=== PATIENT | female | born 1995 | race Caucasian/White ===

== ENCOUNTER 2018-09-14 12:11 | Inpatient (IN) | payer MEDICAID ==
[~2018-09-14] VITALS: Ht 165.1 cm; Wt 122.5 kg
[2018-09-14 12:43] VITALS: Ht 165.1 cm; Wt 122.5 kg
[2018-09-14 12:44] VITALS: BP 124/62; PULSE 85; RESP 18
[2018-09-14] MEDS ORDERED: LACTATED RINGER'S 1,000 ML IV SCH ×2 (16:42→23:01)
[2018-09-14] MEDS ORDERED: OXYTOCIN 30 UNITS/LR 500 ML IV SCH ×5 (17:00→23:01)
[2018-09-14] MEDS ORDERED: LIDOCAINE 1% (MPF) 30 ML INJ INJ PRN (17:00)
[2018-09-14] MEDS ORDERED: METHYLERGONOVINE 0.2 MG INJ IM PRN ×3 (17:00→23:30)
[2018-09-14] MEDS ORDERED: MISOPROSTOL 200 MCG TAB PR PRN ×3 (17:00→23:30)
[2018-09-14] MEDS ORDERED: CARBOPROST 250 MCG INJ IM PRN ×3 (17:00→23:30)
[2018-09-14] MEDS ORDERED: OXYTOCIN 30 UNITS/LR 500 ML IV PRN ×3 (17:00→23:30)
[2018-09-14] MEDS ORDERED: BUTORPHANOL 2 MG INJ IV PRN ×2 (17:00)
[2018-09-14] MEDS ORDERED: AMPICILLIN 2 GM/NS (PMX) 100 ML IV ONE (17:00)
[2018-09-14] MEDS ORDERED: CEFAZOLIN 2 GM/50 ML (PMX) 0 ML IVPB ONE (20:03)
[2018-09-14] MEDS: LACTATED RINGER'S 1,000 ML IV SCH (20:04)
[2018-09-14] MEDS ORDERED: ONDANSETRON 4 MG INJ IV STA (20:09)
[2018-09-14] MEDS ORDERED: CITRIC ACID/NA CITRATE 30 ML CUP ONE (20:12)
[2018-09-14] MEDS ORDERED: ONDANSETRON 4 MG INJ ONE ×2 (20:13→21:08)
--- NOTE | 2018-09-14 20:17 | PREAC ---
Date/Time of Note Date/Time of Note DATE: 09/14/18 TIME: 20:16 Anesthesia Eval and Record Evaluation Time Pre-Procedure Interview DATE: 09/14/18 TIME: 20:16 Age 23 Sex female NPO: 8 hrs Preoperative diagnosis Macrosomia Planned procedure Primary Past Medical History Past Medical History: Includes GI: Obesity Heme: Anemia : : (1), Para: (0), Gestational age: (37) Surgery & Anesthesia Issues No known issue Meds Anticoagulation: No Beta Farrah within 24 hr: No Reason Beta Farrah not given: Pt. not on B-Farrah Current Medications Lactated Ringer's 1,000 ml @ 125 mls/hr Q8H IV Last administered on 09/14/18at 19:36; Admin Dose 125 MLS/HR; Start 09/14/18 at 16:42 Ampicillin 50 ml @ 100 mls/hr Q4H IV ; Start 09/14/18 at 21:00 Butorphanol Tartrate (Stadol) 1 mg Q2H PRN IV .PAIN SCALE 1-5; Start 09/14/18 at 17:00 Butorphanol Tartrate (Stadol) 2 mg Q2H PRN IV .PAIN SCALE 6-10; Start 09/14/18 at 17:00 Lidocaine (Xylocaine 1% (Mpf)) 30 ml ONCE PRN INJ .EPISIOTOMY; Start 09/14/18 at 17:00 Oxytocin/Lactated Ringer's 500 ml @ 500 mls/hr ONCE POST IV ; Start 09/14/18 at 17:00 Oxytocin/Lactated Ringer's 500 ml @ 125 mls/hr POST IV ; Start 09/14/18 at 17:00 Oxytocin/Lactated Ringer's 500 ml @ 0 mls/hr ONCE PRN IV .VAGINAL BLEEDING; Sta rt 09/14/18 at 17:00 Methylergonovine Maleate (Methergine) 0.2 mg ONCE PRN IM .VAGINAL BLEEDING; Sta rt 09/14/18 at 17:00 Carboprost Tromethamine (Hemabate) 250 mcg ONCE PRN IM .VAGINAL BLEEDING; Start 09/14/18 at 17:00 Misoprostol (Cytotec) 1,000 mcg ONCE PRN MA .VAGINAL BLEEDING; Start 09/14/18 at 17:00 Oxytocin/Lactated Ringer's 500 ml @ 0 mls/hr FOR INDUCTION IV ; Start 09/14/18 at 17:00 Lactated Ringer's 1,000 ml @ 125 mls/hr Q8H IV ; Start 09/14/18 at 20:04 Cefazolin Sodium/ Dextrose 50 ml @ 100 mls/hr ONCE IVPB ; Start 09/14/18 at 20:30 Oxytocin/Lactated Ringer's 500 ml @ 125 mls/hr POST IV ; Start 09/14/18 at 20:30 Oxytocin/Lactated Ringer's 500 ml @ 0 mls/hr ONCE PRN IV .VAGINAL BLEEDING; Start 09/14/18 at 20:30 Methylergonovine Maleate (Methergine) 0.2 mg ONCE PRN IM .VAGINAL BLEEDING; Start 09/14/18 at 20:30 Carboprost Tromethamine (Hemabate) 250 mcg ONCE PRN IM .VAGINAL BLEEDING; Start 09/14/18 at 20:30 Misoprostol (Cytotec) 1,000 mcg ONCE PRN MA .VAGINAL BLEEDING; Start 09/14/18 at 20:30 Citric Acid/ Sodium Citrate (Bicitra) 30 ml ONCE ONCE PO ; Start 09/14/18 at 20:30; Stop 09/14/18 at 20:31 Meds reviewed: Yes Allergies Coded Allergies: No Known Allergy (Unverified , 09/14/18) Allergies Reviewed: Yes Labs/Studies Labs Reviewed: Reviewed by anesthesiologist Result Diagram: 09/14/18 1652 Laboratory Tests 09/14/18 16:52 Blood Bank Test 09/14/18 16:52 09/14/18 20:04 Antibody Screen NEGATIVE Blood Type A NEGATIVE Blood Product Summary Counts test: Positive Studies: ECG (n/a), CXR (n/a) Pre-procedure Exam Last vitals Vital Signs Date Temp Pulse Resp B/P (MAP) Pulse Ox O2 O2 Flow FiO2 Time Delivery Rate 09/14/18 98.5 85 18 124/62 12:44 (82) Airway: Adequate mouth opening, Adequate thyromental dist Mallampati: Mallampati II Teeth: Normal Lung: Normal Heart: Normal ASA Physical Status ASA physical status: 2 Emergency: None Planned Anesthetic Neuraxial: Spinal Planned Pain Management Sub-arachniod narcotics, Parenteral pain med Pre-operative Attestations Prior to commencing anesthesia and surgery, the patient was re-evaluated, there was verification of: *The patient's identity *The results of appropriate recent lab work and preoperative vital signs *The above evaluation not changing prior to induction *Anesthetic plan, risk benefits, alternative and complications discussed with patient/family; questions answered; patient/family understands, accepts and wishes to proceed. DHEERAJ CUEVAS MD September 14, 2018 20:17
[2018-09-14] MEDS ORDERED: morphine SULFATE/PF (10 MG/10 ML) INJ ONE (20:20)
[2018-09-14] MEDS ORDERED: PHENYLephrine (100 MCG/ML) 10ML SYG ONE (20:20)
[2018-09-14] MEDS ORDERED: OXYTOCIN 10 UNIT INJ ONE (20:21)
[2018-09-14] MEDS ORDERED: CEFAZOLIN 2 GM/50 ML (PMX) 50 ML IVPB SCH (20:30)
[2018-09-14] MEDS ORDERED: CITRIC ACID/NA CITRATE 30 ML CUP PO ONE ×2 (20:30)
[2018-09-14] MEDS ORDERED: CEFAZOLIN 3 GM in DEXTROSE 5% 100 ML IV ONE (20:30)
[2018-09-14] MEDS ORDERED: ONDANSETRON 4 MG INJ IV ONE (20:30)
--- NOTE | 2018-09-14 20:36 | HP ---
Date/Time of Note Date/Time of Note DATE: 09/14/18 TIME: 20:35 OB - History Hx of Present Free Text/Dictation 23-year-old 1 para 0 at 39 weeks and 4 days of gestation with estimated date of delivery October 14, 2018 based on an ultrasound that was done today Patient has had no care She reports that she did not have insurance therefore she did not seek any care Her blood type is A- and she did not receive RhoGam for this Patient reports positive movement, denies vaginal bleeding or leaking fluid Estimated Due Date: Oct 14, 2018 : 1 Para: 0 Care: None Past Family/Social History * Medical history significant for blood type A- and asthma Surgical and family history noncontributory to this Blood Type: A- OB Admission Exam Vital Signs Vital Signs Vital Signs Date Temp Pulse Resp B/P (MAP) Pulse Ox O2 O2 Flow FiO2 Time Delivery Rate 09/14/18 98.5 85 18 124/62 12:44 (82) Physical Exam HEENT: WNL Heart: Rhythm Normal Lungs: Clear, Equal Abdomen: WNL Extremities: Normal Reflexes: Normal Cervical Dilatation: Fingertip Effacement: 0% Station: -3 Membranes: Intact Heart Rate: 140's Accelerations: Accelerations Present Decelerations: No Decelerations Varibility: Moderate Contractions on Admission: >10 Minutes Apart Intensity: Mild Last 72 hours Lab Results CBC & BMP 09/14/18 16:52 PROCEDURE: US OB. CLINICAL INDICATION: Uncertain size and dates. No care. TECHNIQUE: Multiple sonographic images of the uterus were obtained. The images were reviewed on a PACS workstation. COMPARISON: No prior studies are available for comparison. FINDINGS: There is a single live intrauterine gestation. heart rate is 161 beats per minute. Measurements were made in order to determine age. The results are as follows: BPD = 9.53 cm. HC = 33.63 cm. AC = 37.76 cm. FL = 7.66 cm. Estimated weight is 4091 +/- 614 grams. Menstrual age by ultrasound dates is 39 weeks 4 days. The estimated date of delivery is 10/14/2018. Position is cephalic and placenta is anterior grade II. There is no evidence for an abruption or placenta previa. IMPRESSION: 1. Single live intrauterine gestation of 39 weeks 4 days gestational age by ultrasound dates. 2. The estimated date of delivery is 10/14/2018. RPTAT: QQ .Juan Carig MD, MD Date Time Electronically viewed and signed by .Juan Craig MD, MD on 09/14/2018 14:25 .R/ CC: MARIE CARCAMO MD [id number] PROCEDURE: US OB biophysical profile. CLINICAL INDICATION: decreased movements, no care TECHNIQUE: Multiple sonographic images of the pelvis were obtained. The images were reviewed on a PACS workstation. COMPARISON: No prior studies are available for comparison. FINDINGS: There is a single live intrauterine gestation. Cardiac activity is present with 159 beats per minute. There is a vertex presentation. The placenta is anterior. There is no evidence of placental abruption. PHIL = 6.4 cm. Biophysical profile: movement 2/2 tone 2/2. breathing 2/2 PHIL 2/2 Total 11/22 RPTAT: AA . IMPRESSION: Normal biophysical profile. Mild oligohydramnios. . .Wei Jerome MD, MD Date Time Electronically viewed and signed by .Wei Jerome MD, MD on 09/14/2018 14:28 .S/ CC: MARIE CARCAMO MD [id number] OB Assessment/Plan Reason for admission: other Plan: Section Other plan: Patient at term gestation with no care and suspected CPD and suspected macrosomia with estimated weight of 4091 614 desires elective primary Patient's blood type A- and did not receive RhoGam due to lack of care All benefits and risks including but not limited to infection, bleeding which may require blood transfusion, trauma to other organs including bowel and bladder were discussed with the patient She completely understands her plan of care and agrees to proceed MOODY FOSTER MD September 14, 2018 20:36
--- NOTE | 2018-09-14 20:54 | OPPN ---
Date/Time of Note Date/Time of Note DATE: 09/14/18 TIME: 20:51 Operative Report Planned Procedure Free Text/Dictation Term gestation with no care Procedure date September 14, 2018 Procedure(s) Primary low transverse Performed by see signature line Patient'S Librarian: MARIE CARCAMO MD 2nd Patient'S Librarian none Pre-procedure diagnosis 1. Elective primary for suspected CPD and suspected macrosomia 2. No care, blood type A- did not receive RhoGam due to the lack of care [id number] Anesthesia Type: [id number] spinal Post-Procedure Post-procedure diagnosis 1. Elective primary for suspected CPD and suspected macrosomia 2. No care, blood type A- did not receive RhoGam due to the lack of care Findings Live Baby [boy], Apgars [8] and [9], weight [4090 grams/ 9 pounds ], [vertex] presentation cord [around the neck x1 manually reduced] EBL 700 cc IV fluids 1300 cc Urine output 200 cc Estimated Blood Loss: 600 - 700 mls Specimen(s) Placenta Grafts/Implant(s) none Complication(s) none MOODY FOSTER MD September 14, 2018 20:54
[2018-09-14] MEDS ORDERED: AMPICILLIN 1 GM/NS (PMX) 50 ML IV SCH (21:00)
[2018-09-14] MEDS ORDERED: KETOROLAC 30 MG INJ ONE (21:09)
[2018-09-14] MEDS ORDERED: DEXAMETHASONE 4 MG/ML 1 ML INJ ONE (21:09)
[2018-09-14] MEDS ORDERED: METOCLOPRAMIDE 10 MG INJ ONE (21:09)
[2018-09-14] MEDS ORDERED: morphine 2 MG INJ IV PRN ×2 (21:30)
[2018-09-14] MEDS ORDERED: ACETAMINOPHEN 500 MG TAB PO PRN (21:30)
[2018-09-14] MEDS ORDERED: HYDROmorphONE 0.5 MG/0.5 ML SYG IV PRN ×2 (21:30)
[2018-09-14] MEDS ORDERED: METOCLOPRAMIDE 10 MG INJ IV PRN (21:30)
[2018-09-14] MEDS ORDERED: HYDROmorphONE 1 MG/5 ML IV SYRINGE IV PRN ×2 (21:30)
[2018-09-14] MEDS ORDERED: EPHEDrine 25 MG/5 ML SYG IV PRN (21:30)
[2018-09-14] MEDS ORDERED: NALBUPHINE HCL (10 MG/1 ML) INJ IV PRN (21:30)
[2018-09-14] MEDS ORDERED: HYDROCODONE/APAP (5/325) TAB PO PRN (21:30)
[2018-09-14] MEDS ORDERED: OXYCODONE/ACETAMINOPHEN (5/325) TAB PO PRN ×2 (21:30→23:30)
[2018-09-14] MEDS ORDERED: DIPHENHYDRAMINE 50 MG INJ IV PRN ×2 (21:30)
[2018-09-14] MEDS ORDERED: NALOXONE (0.4 MG/ML) INJ IV PRN (21:30)
[2018-09-14] MEDS ORDERED: ONDANSETRON 4 MG INJ IV PRN ×3 (21:30→23:30)
[2018-09-14] MEDS ORDERED: FENTAnyl 50 MCG/ML VIAL IV PRN ×2 (21:30)
[2018-09-14] MEDS ORDERED: KETOROLAC 30 MG INJ IV PRN (21:30)
[2018-09-14] MEDS ORDERED: MEPERIDINE 25 MG INJ IV PRN (21:30)
[2018-09-14] MEDS ORDERED: MEPERIDINE 100 MG INJ ONE (21:31)
--- NOTE | 2018-09-14 22:06 | PAC ---
Date/Time of Note Date/Time of Note DATE: 09/14/18 TIME: 22:06 Post-Anesthesia Notes Post-Anesthesia Note Last documented vital signs Vital Signs Date Temp Pulse Resp B/P (MAP) Pulse Ox O2 O2 Flow FiO2 Time Delivery Rate 09/14/18 98.5 85 18 124/62 99 room air 22:04 (82) Activity: WNL Respiratory function: WNL Cardiovascular function: WNL Mental status: Baseline Pain reasonably controlled: Yes Hydration appropriate: Yes Nausea/Vomiting absent: Yes DHEERAJ CUEVAS MD September 14, 2018 22:06
--- NOTE | 2018-09-14 23:04 | OPR ---
Operative Report Planned Procedure Procedure date September 14, 2018 Procedure(s) Primary low transverse Performed by see signature line Government Minister: MARIE CARCAMO MD Pre-procedure diagnosis 1. Elective primary for suspected CPD and suspected macrosomia 2. No care, blood type A- did not receive RhoGam due to the lack of care [id number] Anesthesia Type: [id number] spinal Post-Procedure Post-procedure diagnosis 1. Elective primary for suspected CPD and suspected macrosomia 2. No care, blood type A- did not receive RhoGam due to the lack of care Findings Live Baby [boy], Apgars [8] and [9], weight [4090 grams/ 9 pounds ], [vertex] presentation cord [around the neck x1 manually reduced] EBL 700 cc IV fluids 1300 cc Urine output 200 cc Estimated Blood Loss: 600 - 700 mls Specimen(s) Placenta Grafts/Implant(s) none Complication(s) none Pt Condition post procedure: stable Disposition: PACU Procedure Description Patient was taken to the operating room after adequate amount of anesthesia was given patient was prepped and draped in normal sterile fashion Low transverse Pfannenstiel skin incision was made. Incision was carried through to the underlying layer of fascia using Bovie Fascia was incised in the midline and incision was extended bilaterally using Bovie Both anterior and posterior edge of the fascia were from underlying layer of rectus muscles Rectus muscles were in the midline and peritoneum was identified and entered sharply without any difficulty Peritoneum was extended bilaterally manually. An Tres retractor was placed A bladder flap was created. Then a low transverse uterine incision was made on the uterus Cord around the neck x1 manually reduced then fetus was delivered from vertex presentation and after 30 seconds delayed cord clamping the fetus was handed immediately to the waiting ICU team Placenta was delivered manually intact. Uterus was cleared off of all clots and debris Uterine incision was closed with 1 Vicryl suture in both running locked and a second layer imbricating fashion Multiple irrigations were performed and excellent hemostasis was noted. Both a dnexa appeared normal Tres retractor was removed Peritoneal closure proceeded with 2-0 Vicryl in a running fashion. Rectus mu scles were reapproximated with 2-0 chromic Fascia was closed with 0-Vicryl suture in 2 separate segments in a running fashion Subcutaneous layer was closed with 0- plain suture in a continuous fashion Skin was closed with end-sorb chasity and Dermabond glue All sponge, lap, needle counts were reported to be correct Patient tolerated the procedure well and taken back to recovery room in a stable condition MOODY FOSTER MD September 14, 2018 23:04
[2018-09-14] MEDS ORDERED: ACETAMINOPHEN 325 MG TAB PO PRN (23:30)
[2018-09-14] MEDS ORDERED: SENNA/DOCUSATE NA (8.6MG/50MG) TAB PO PRN (23:30)
[2018-09-14] MEDS ORDERED: BISACODYL 10 MG SUPP PR PRN (23:30)
[2018-09-14] MEDS ORDERED: LANOLIN HPA 1 PKT TOP PRN (23:30)
[2018-09-14] MEDS ORDERED: IBUPROFEN 600 MG TAB PO PRN (23:30)
[2018-09-14] MEDS ORDERED: MAGNESIUM HYDROXIDE 30ML CUP PO PRN (23:30)
[2018-09-14] MEDS: CEFAZOLIN 1 GM/50 ML (PMX) 50 ML IVPB SCH (23:54)
[2018-09-15 00:35] VITALS: BP 131/50; PULSE 75; RESP 18
[2018-09-15 03:53] VITALS: BP 119/59; PULSE 84; RESP 18
[2018-09-15] MEDS: LACTATED RINGER'S 1,000 ML IV SCH ×3 (07:00→18:51)
[2018-09-15] MEDS: CEFAZOLIN 1 GM/50 ML (PMX) 50 ML IVPB SCH ×2 (07:19→15:43)
[2018-09-15 08:30] VITALS: BP 104/54; PULSE 84; RESP 20
--- NOTE | 2018-09-15 10:55 | QN ---
Documentation Comment POD #1 s/p primary for macrosomia. Pt Feels well with excellent pain control. No flatus yet. No nausea or vomiting. T=98.5 BP 119/59 Fundus firm. Dressing C/D/I. Lochia minimal. Ext 3+ edema. WBC 15.9 Hgb 8.2 Plts 262K. P: Pt on antibiotics. Reviewed pain medication options for when the Duramorph wears off. Continue care. SARAH AWAN MD Sep 15, 2018 10:55
[2018-09-15] MEDS: ENOXAPARIN 40 MG/0.4 ML SYG SC SCH (10:58)
[2018-09-15 16:51] VITALS: BP 107/53; PULSE 98; RESP 20
[2018-09-15] MEDS: OXYCODONE/ACETAMINOPHEN (5/325) TAB PO PRN (18:13)
[2018-09-15 19:30] VITALS: BP 106/58; PULSE 65; RESP 20
[2018-09-15] MEDS: IBUPROFEN 800 MG TAB PO SCH (20:18)
[2018-09-15] MEDS ORDERED: IBUPROFEN 600 MG TAB PO PRN (20:18)
[2018-09-16 04:00] VITALS: BP 106/62; PULSE 89; RESP 19
[2018-09-16] MEDS: LACTATED RINGER'S 1,000 ML IV SCH ×3 (04:04→18:16)
[2018-09-16] MEDS: IBUPROFEN 800 MG TAB PO SCH ×3 (05:39→20:18)
[2018-09-16 08:30] VITALS: BP 100/60; PULSE 87; RESP 20
[2018-09-16] MEDS: OXYCODONE/ACETAMINOPHEN (5/325) TAB PO PRN (08:49)
[2018-09-16] MEDS: ENOXAPARIN 40 MG/0.4 ML SYG SC SCH (08:51)
[2018-09-16 16:04] VITALS: BP 118/63; PULSE 98; RESP 20
--- NOTE | 2018-09-16 18:54 | QN ---
Documentation Comment POD#2 is stable afebrile tolerates diet No Vb +flatus +voids VS stable Gen NAD Abd soft NT ND Incision intact Genitalia No blood at perineum --->Ambulation JESSICA LOCK M.D. Sep 16, 2018 18:54
[2018-09-16 20:20] VITALS: BP 112/58; PULSE 82; RESP 17
[2018-09-17 04:15] VITALS: BP 115/55; PULSE 101; RESP 18
[2018-09-17] MEDS: IBUPROFEN 800 MG TAB PO SCH ×2 (04:15→12:35)
[2018-09-17 08:00] VITALS: BP 134/62; PULSE 74; RESP 16
[2018-09-17] MEDS: ENOXAPARIN 40 MG/0.4 ML SYG SC SCH (10:05)
[2018-09-17] MEDS ORDERED: BISACODYL 10 MG SUPP PR ONE (11:40)
--- NOTE | 2018-09-17 11:51 | DS ---
Date/Time of Note Date/Time of Note DATE: 09/17/18 TIME: 11:46 Obstetrical Discharge Record Final Diagnosis Final Diagnosis: Term delivered Other Final Diagnosis Postop day #3 Status post primary Patient stable and afebrile Patient is ambulating, tolerating regular diet, voiding and positive flatus Vital signs stable Hematology - 72 Hrs Test 09/14/18 16:52 09/15/18 08:03 09/17/18 12:02 Hematocrit 34.9 % (37.0-47.0) 25.0 % (37.0-47.0) 26.3 % (37.0-47.0) L #L L Hemoglobin 11.2 8.2 8.3 g/dl (12.0-16.0) L g/dl (12.0-16.0) g/dl (12.0-16.0) #L L Mean Corpuscular 29.6 pg (29.0-33.0) 30.1 30.3 Hemoglobin pg (29.0-33.0) pg (29.0-33.0) Mean Corpuscular 32.1 32.8 31.6 Hemoglobin Concent g/dl (32.0-37.0) g/dl (32.0-37.0) g/dl (32.0-37.0) L Mean Corpuscular 92.3 91.9 96.0 Volume fl (82.0-101.0) fl (82.0-101.0) fl (82.0-101.0) Mean Platelet 10.7 fl (7.4-10.4) 11.0 fl (7.4-10.4) 10.2 fl (7.4-10.4) Volume H H Platelet Count 324 262 305 10^3/UL (140-415) 10^3/UL (140-415) 10^3/UL (140-415) Red Blood Count 3.78 2.72 2.74 10^6/ul (4.20-5.40) 10^6/ul (4.20-5.40 10^6/ul (4.20-5.40 L ) #L ) L Red Cell 13.2 % (11.5-14.5) 13.1 % (11.5-14.5) 13.4 % (11.5-14.5) Distribution Width White Blood Count 8.7 15.9 9.6 10^3/ul (4.8-10.8) 10^3/ul (4.8-10.8) 10^3/ul (4.8-10.8) #H # Chemistry Test 09/15/18 08:03 Sodium Level 134 mmol/L (135-144) L Potassium Level 4.1 mmol/L (3.5-5.1) Chloride Level 107 mmol/L (97-110) Carbon Dioxide Level 23 mmol/L (21-31) Anion Gap 4 (5-13) L Blood Urea Nitrogen 10 mg/dl (7-20) Creatinine 0.56 mg/dl (0.44-1.00) Est Glomerular Filtrat Rate mL/min > 60 mL/min (>60) Glucose Level 108 mg/dl (70-220) Calcium Level 8.3 mg/dl (8.4-10.2) L Total Bilirubin 0.3 mg/dl (0.2-1.3) Direct Bilirubin 0.00 mg/dl (0.00-0.20) Indirect Bilirubin 0.3 mg/dl (0-1.1) Aspartate Amino Transf (AST/SGOT) 20 IU/L (15-46) Alanine Aminotransferase (ALT/SGPT) 16 IU/L (13-69) Alkaline Phosphatase 133 IU/L (42-121) H Total Protein 5.5 g/dl (6.1-8.1) L Albumin 2.7 g/dl (3.3-4.9) L Globulin 2.80 g/dl (1.3-3.2) Albumin/Globulin Ratio 0.96 Abdomen soft, fundus firm Incision clean, dry, intact Extremities nontender Assessment and plan Patient stable and doing well Plan to discharge home Patient instructed to follow-up with ELECT[employer] OPERATOR in 2 and 6 weeks Section Section: Primary Condition on Discharge Physical Assessment Last Vitals: VS - Last 72 Hours, by Label Date Temp Pulse Resp B/P (MAP) Pulse Ox O2 O2 Flow FiO2 Time Delivery Rate 09/17/18 98.1 74 16 134/62 Room Air 08:00 (86) 09/17/18 98.1 101 18 115/55 Room Air 04:15 (75) 09/16/18 98.1 82 17 112/58 Room Air 20:20 (76) 09/16/18 98.3 98 20 118/63 Room Air 16:04 (81) 09/16/18 98.3 87 20 100/60 Room Air 08:30 (73) 09/16/18 98.8 89 19 106/62 04:00 (77) 09/15/18 98.3 65 20 106/58 Room Air 19:30 (74) 09/15/18 98.5 98 20 107/53 Room Air 16:51 (71) 09/15/18 98.3 84 20 104/54 Room Air 08:30 (71) 09/15/18 98.5 84 18 119/59 96 Room Air 03:53 (79) 09/15/18 98.3 75 18 131/50 99 Room Air 00:35 (77) 09/14/18 98.5 85 18 124/62 12:44 (82) Voiding: Yes Bowel Movement: Yes Breast: Soft, non-tender Fundus: Firm Calf Tenderness: No Patient Condition: Good MOODY FOSTER MD Sep 17, 2018 11:50
--- NOTE | 2018-09-18 19:18 | DELSUM ---
Delivery Summary A-C Datetime Report Generated by CPN: 09/18/2018 19:18 DELIVERY PERSONNEL Tenterer: Tersigni, Lizett MATERNAL INFORMATION Delivery Anesthesia: Spinal Medications in Delivery: SEE ANESTHESIA FLOWSHEET Delivery QBL (ml): 700 Placenta Cultured: No Maternal Complications: Other Other Maternal Complications: NO CARE LABOR SUMMARY EDC: 09/17/2018 00:00 No. Babies in Womb: 1 Attempted: No Labor Anesthesia: None LABOR INFORMATION Reason for Induction: Not Applicable Oxytocin: N/A Group B Beta Strep: Not Done Antibiotics # of Doses: 2 Antibiotics Time of Last Dose: 09/14/2018 20:52 Steroids Given: None Reason Steroids Not Administered: Not Applicable MEMBRANES Membranes Rupture Method: Artificial Rupture of Membranes: 09/14/2018 21:20 Length of Rupture (hr): 0.00 Amniotic Fluid Color: Clear Amniotic Fluid Amount: Moderate Amniotic Fluid Odor: None STAGES OF LABOR Stage 3 hr: 0 Stage 3 min: 1 CSECTION DELIVERY Primary Indication: Other Other Primary Indication: MACROSOMIA CSection Urgency: Non Elective CSection Incidence: Primary Labor: No Labor Elective: Nonelective CSection Incision: Lower Uterine Transverse BABY A INFORMATION Delivery Date/Time: 09/14/2018 21:20 Method of Delivery: Born in Route : No : N/A Forceps: N/A Vacuum Extraction: N/A Shoulder Dystocia : N/A SHOULDER DYSTOCIA BABY A Delivery Date/Time: 09/14/2018 21:20 PRESENTATION/POSITION BABY A Presentation: Cephalic Cephalic Presentation: Vertex Vertex Position: Left Occipital Anterior Breech Presentation: N/A PLACENTA INFORMATION BABY A Placenta Delivery Time : 09/14/2018 21:21 Placenta Method of Delivery: Manual Removal Placenta Status: Delivered SCORES BABY A Heart Rate 1 min: >100 bpm Resp Effort 1 min: Good Cry Reflex Irritability 1 min: Cough/Sneeze/Pulls Away Muscle Tone 1 min: Active Motion Color 1 min: Blue/Pale Resuscitation Effort 1 min: Tactile Stimulation SCORE 1 MIN: 8 Heart Rate 5 min: >100 bpm Resp Effort 5 min: Good Cry Reflex Irritability 5 min: Cough/Sneeze/Pulls Away Muscle Tone 5 min: Active Motion Color 5 min: Body [place], Extremit Blue Resuscitation Effort 5 min: Tactile Stimulation SCORE 5 MIN: 9 INFORMATION BABY A Gestational Age at Delivery: 39.4 Gestational Status: Full Term- 39- 40.6 Weeks Infant Outcome : Liveborn Condition : Stable Sex: Male IDENTIFICATION/MEDS BABY A ID Band Number: [id number] ID Band Location: Right Leg; Left Arm Sensor Applied: Yes Sensor Number: [id number] Sensor Location : Cord Clamp Vitamin K Given : Not Given Erythromycin Given: Not Given WEIGHT/LENGTH BABY A Birthweight (gm): 4090 Weight (lb): 9 Weight (oz): 0 Length (in): 20.50 Length (cm): 52.07 CORD INFORMATION BABY A No. Cord Vessels: 3 Nuchal Cord : Around Neck x1, Loose True Knot: 0 Cord Blood Taken: Yes Infant Suction: Mouth; Nose ASSESSMENT BABY A Complications: None Physical Findings at Delivery: Within Normal Limits Respirations: Appears Normal Senior Business Development Manager/ALS Called : Yes Infant Care By: NICU TEAM / YANDEL RN Transferred To: Remains with Mother
== END 2018-09-17 19:17 | disposition home or self-care (01) | DRG 788 ==
LOC: EDBD 12:11 → L-D 12:11 → OBT 12:11 → L-D 15:40 → EEVIPCON 15:40 → OBT 15:40 → L-D 20:05 → PP1 09-15 00:39
PROVIDERS: ADMIT Obstetrics & Gynecology; ATTEND Obstetrics & Gynecology
PROC: 10D00Z1 Extraction of Products of Conception, Low, Open Approach (ICD-10-PCS; principal; 2018-09-14 20:45)
DX: O36.63X0 Maternal care for excessive fetal growth, third trimester, not applicable or unspecified (principal); O33.9 Maternal care for disproportion, unspecified; Z3A.39 39 weeks gestation of pregnancy; Z37.0 Single live birth
CPT/HCPCS: 76815; 76818; 80053; 80307; 81001; 85025; 85610; 85730; 86592; 86703; 86762; 86850; 86900; 86901; 87340; 88307; 99464; G0463; J0290; J0690; J1100; J1200; J1650; J1885; J2175; J2274; J2370; J2405; J2590; J2765; J7120

== ENCOUNTER 2018-11-02 19:26 | Emergency (ER) | payer MEDICAID, OTHER ==
[~2018-11-02] VITALS: Ht 165.1 cm; Wt 104.5 kg
[2018-11-02 19:41] VITALS: BP 130/60; PULSE 90; RESP 18; Ht 165.1 cm; Wt 104.5 kg
[2018-11-02] MEDS ORDERED: LIDOCAINE/MYLANTA 40 ML BTL PO STA (20:33)
[2018-11-02] MEDS ORDERED: KETOROLAC 60 MG INJ IM STA (20:33)
[2018-11-02] MEDS ORDERED: BELLADONNA/PHENOBARBITAL TAB PO STA (20:33)
--- NOTE | 2018-11-03 00:30 | ERD ---
ER Documentation Chief Complaint Chief Complaint BIB-RA x epigastric pain x 3 hrs; hx gallbladder HPI History of Present Illness: 23-year-old female who reports a past medical history of gallstones coming in today with complaints of right upper quadrant and intermittent epigastric pain is been present for 3 hours prior to arrival. Reports pain is 9-10/sharp and tightness. Patient denies any other associated symptoms At home pharmacological/nonpharmacological treatment for symptoms: Denies Denies social concerns; Denies recent foreign travel ROS All systems reviewed and are negative except as per history of present illness. Medications Home Meds No Active Prescriptions or Reported Meds Allergies Allergies: Coded Allergies: No Known Allergy (Unverified , 09/14/18) PMhx/Soc Medical and Surgical Hx: pt denies Surgical Hx Hx Miscellaneous Medical Probl: Yes (GALLSTONES) Hx Alcohol Use: No Hx Substance Use: No Hx Tobacco Use: No Smoking Status: Never smoker Physical Exam Vitals Vital Signs Date Temp Pulse Resp B/P (MAP) Pulse Ox O2 O2 Flow FiO2 Time Delivery Rate 11/02/18 97.4 90 18 130/60 98 19:41 (83) Physical Exam Const: No acute distress, afebrile Head: Atraumatic Eyes: Normal Conjunctiva ENT: Normal External Ears, Nose and Mouth. Neck: Full range of motion. No meningismus. Resp: Clear to auscultation bilaterally Cardio: Regular rate and rhythm, no murmurs Abd: Soft, right upper quadrant and right lower quadrant tenderness, non distended. No guarding, no masses, no rigidity. Obese. Positive Vargas sign. Skin: No petechiae or rashes Back: No midline or flank tenderness Ext: No cyanosis, or edema Neur: Awake and alert x3, speaking in clear sentences, no focal deficits or facial asymmetry Psych: Normal Mood and Affect Results 24 hrs Laboratory Tests Test 11/02/18 20:18 POC Beta HCG, Qualitative NEGATIVE Current Medications Medications Dose Sig/Mat Start Time Status Last (Trade) Ordered Route PRN Stop Time Admin Dose Reason Admin 40 ml ONCE STAT 11/02/18 DC Miscellaneous PO 20:33 Medication 11/02/18 20:36 (Gi Cocktail (2)) Belladonna/ 1 tab ONCE STAT 11/02/18 DC Phenobarbital PO 20:33 () 11/02/18 20:36 Ketorolac 60 mg ONCE STAT 11/02/18 DC Tromethamine IM 20:33 (Toradol) 11/02/18 20:36 Procedures/MDM ED COURSE: ED course includes a thorough examination and history. The patient was stable throughout ED course. I kept the patient and/or family informed of laboratory and diagnostic imaging results throughout the ED course. LABS: CBC, CMP, lipase, urinalysis, urine pending MEDICATIONS GIVEN IN ER: GI cocktail, DIAGNOSTIC IMAGING: Abdominal ultrasound ordered PROCEDURES: None. MEDICAL DECISION MAKING: Unable to complete full evaluation of patient. Informed by nursing staff the patient has eloped and did not get any testing done DISPOSITION: Eloped DISCLAIMER: Inadvertent spelling and grammatical errors are likely due to EHR/dictation software use and do not reflect on the overall quality of patient care. Also, please note that the electronic time recorded on this note does not necessarily reflect the actual time of the patient encounter. ANJUM BARRETO NP Nov 03, 2018 00:30
== END 2018-11-02 22:36 | disposition left against medical advice (07) ==
LOC: FTE 19:26
DX: R10.13 Epigastric pain (principal); R10.11 Right upper quadrant pain; R10.31 Right lower quadrant pain
CPT/HCPCS: 81025; 99282; J1885